=== PATIENT | male | born 1950 | race Caucasian/White ===

== ENCOUNTER → 2022-01-25 13:43 | Outpatient (CLI) | payer MEDICARE, OTHER, SELFPAY ==
--- NOTE | 2022-01-25 | DI.MRI.S_ITS ---
PROCEDURE: MR HEAD/BRAIN WO/W CON INDICATIONS: tremor unspecified TECHNIQUE: Noncontrast axial T1 spin echo, axial T2 fast spin echo, sagittal and axial FLAIR, coronal T2 fast spin echo, axial gradient echo, axial diffusion and ADC through the brain. After the administration of contrast, axial and coronal and sagittal T1 spin echo with fat saturation through the brain. COMPARISON: None. FINDINGS: Image quality: Excellent. CSF spaces: Basal cisterns are patent. No extra-axial fluid collections. Ventricles are normal in size and shape. Brain: No midline shift. No intracranial bleeds or masses. No abnormal intracranial enhancement. There is mild cerebral volume loss for age. There is mild periventricular white matter chronic small vessel ischemic change. The brainstem appears normal. Diffusion-weighted images demonstrate no acute ischemic insults. No chronic ischemic insults. Normal intravascular flow voids are present. Dural sinuses demonstrate normal postcontrast enhancement. Skull and face: Calvarial marrow is normal in signal. Orbits appear normal. Sinuses: Sinuses and mastoids appear clear. IMPRESSION: 1. No acute intracranial disease process. 2. No areas of acute or chronic infarction. 3. No abnormal intracranial mass or suspicious postcontrast enhancement. 4. Mild, diffuse cerebral volume loss. 5. Mild periventricular and subcortical white matter chronic microvascular ischemic change. Dictated by: Thais Jarrell MD, PhD on 01/25/2022 at 15:18 Approved by: Thais Jarrell MD, PhD on 01/25/2022 at 15:21
== END ==
PROVIDERS: Referring Provider Psychiatry & Neurology Neurology; Visit Provider Psychiatry & Neurology Neurology
DX: R25.1 Tremor, unspecified (principal)
CPT/HCPCS: 70553; A9579

== ENCOUNTER 2022-09-23 15:54 | Inpatient (IN) | payer MEDICARE, OTHER, SELFPAY ==
[2022-09-23] VITALS (27 sets, daily range): BP systolic 121–191; BP diastolic 56–110; PULSE 72–90; RESP 15–27; TEMP 36.4; O2SAT 94–100; BMI 29.5
[2022-09-23] MEDS: LIDOCAINE 2% (GLYDO) 6 ML GEL TOP (16:20)
--- NOTE | 2022-09-23 16:39 | PC.NURSE ---
Addendum entered by Milena Rogers R.N. 09/23/22 16:42: Pt also reporting a cold for past week and a half with some diarrhea this morning. Original Note: Pt reports recent TURP procedure on Aug.29 with no complications. Presents today with moderate penile bloody discharge, acute urinary retention and discomfort to abdomen in regard to wanting to void. Walter cath placed and 800cc of dark red bloody urine drained. Walter still draining. Pt reports on and off bloody discharge and urination since procedure. Urologist is Dr. Bauman at [facility] with a follow up appointment on October 02. Pt is on thinners. Encouraged to use call light for needs.
--- NOTE | 2022-09-23 16:44 | PC.NURSE ---
Pt denies chest pain and SOB. Pt placed on continuous cardiac nurse specialist.
--- NOTE | 2022-09-23 17:00 | ED.MALEGU ---
HPI - Male Genitourinary <Heather Neville DO - Last Filed: 09/28/22 07:35> General Chief complaint: Urogenital-Male Stated complaint: Urinary Retention Time Seen by Provider: 09/23/22 17:00 Source: patient Mode of arrival: Ambulatory History of Present Illness HPI Narrative: Patient is 72-year-old male history of coronary artery disease on aspirin Plavix with TURP on August 28 at [facility] presents today with difficulty with urination. Reports that he has had hematuria off and on since the surgery. Today he stopped urinating around new. Walter catheter has since placed by nursing staff gross hematuria. Patient says that there is blood foot frequently clears up. He denies any fever or chills. He had instant relief with Walter catheter. No chest pain dizziness or other symptoms. Related Data Home Medications Medication Instructions Recorded Confirmed carvedilol 25 mg tablet 25 mg BID 09/23/22 09/23/22 B Complex-Vitamin B12 2,500 mg PO DAILY 09/24/22 09/24/22 aspirin 81 mg tablet 81 mg PO DAILY 09/24/22 09/24/22 atorvastatin 40 mg tablet 40 mg PO BEDTIME 09/24/22 09/24/22 cholecalciferol (vitamin D3) 25 1,000 unit PO DAILY 09/24/22 09/24/22 mcg (1,000 unit) tablet citalopram 20 mg tablet 20 mg PO DAILY 09/24/22 09/24/22 hydrochlorothiazide 25 mg tablet 25 mg PO DAILY 09/24/22 09/24/22 metformin 1,000 mg tablet 1,000 mg PO BID 09/24/22 09/24/22 montelukast 10 mg tablet 10 mg PO BEDTIME 09/24/22 09/24/22 pantoprazole 40 mg tablet,delayed 40 mg PO BEDTIME 09/24/22 09/24/22 release primidone 50 mg tablet 50 mg PO BEDTIME 09/24/22 09/24/22 tamsulosin 0.4 mg capsule 0.4 mg PO BEDTIME 09/24/22 09/24/22 trazodone 100 mg tablet 100 mg PO BEDTIME 09/24/22 09/24/22 Allergies Allergy/AdvReac Type Severity Reaction Status Date / Time No Known Drug Allergies Allergy Verified 09/24/22 02:12 Review of Systems <Heather Neville DO - Last Filed: 09/28/22 07:35> Review of Systems ROS Unobtainable: All systems reviewed & are unremarkable except as noted in HPI and below Patient History <Heather Neville DO - Last Filed: 09/28/22 07:35> Medical History Asthma Cholelithiasis Diabetes type 2, controlled Essential hypertension Myocardial infarction Surgical History S/P CABG x 5 Family History Mother Hyperlipidemia Father Myocardial infarction Heart disease Brother Heart disease Social History household members: spouse Smoking Status: Never smoker Smoking Status: Never smoker alcohol intake frequency: 0-2 drinks per day Substance Use Type: does not use Exam <Heather Neville DO - Last Filed: 09/28/22 07:35> Initial Vital Signs Initial Vital Signs: Vital Signs Temperature 97.5 F L 09/23/22 16:00 Pulse Rate 90 09/23/22 16:00 Respiratory Rate 20 09/23/22 16:00 Blood Pressure 187/91 H 09/23/22 16:00 Pulse Oximetry 100 09/23/22 16:00 Oxygen Delivery Method Room Air 09/23/22 16:00 GENERAL: Alert pleasant 72-year-old male CARDIOVASCULAR: peripheral pulses in tact, cap refill <2 sec RESPIRATORY: No respiratory distress, speaks in full sentences without difficulty ABDOMEN: Soft, nontender, no guarding or rebound : Walter catheter in place gross hematuria EXTREMITIES: Normal range of motion, no clubbing or edema. Neurovascularly intact NEUROLOGICAL: Cranial nerves II through XII grossly intact. Normal gait and speech. SKIN: Warm, dry, no petechiae, no rashes or lesions. <Marcin Hoover DO - Last Filed: 09/24/22 00:25> Initial Vital Signs Initial Vital Signs: Vital Signs Temperature 97.5 F L 09/23/22 16:00 Pulse Rate 90 09/23/22 16:00 Respiratory Rate 20 09/23/22 16:00 Blood Pressure 187/91 H 09/23/22 16:00 Pulse Oximetry 100 09/23/22 16:00 Oxygen Delivery Method Room Air 09/23/22 16:00 Course <Heather Neville DO - Last Filed: 09/28/22 07:35> Orders Ordered: Discontinued Medications Acetaminophen (Acetaminophen 325 Mg Tablet) 650 mg PO Q6H PRN PRN Reason: Fever/Mild Pain (1-3) Last Admin: 09/25/22 08:37 Dose: 650 mg Documented By: BV Atorvastatin Calcium (Atorvastatin 20 Mg Tablet) 40 mg PO BEDTIME [facility] Last Admin: 09/25/22 21:11 Dose: 40 mg Documented By: Admin: 09/24/22 21:05 Dose: 40 mg Documented By: Admin: 09/24/22 02:31 Dose: Not Given Documented By: CT Carvedilol (Carvedilol 12.5 Mg Tablet) 25 mg PO BID [facility] Last Admin: 09/26/22 08:26 Dose: 25 mg Documented By: Admin: 09/25/22 21:10 Dose: 25 mg Documented By: Admin: 09/25/22 08:38 Dose: 25 mg Documented By: Admin: 09/24/22 21:04 Dose: 25 mg Documented By: Admin: 09/24/22 09:04 Dose: 25 mg Documented By: CLP Dextrose (Dextrose 50 % In Water 25 Gm/50 Ml Syringe) 25 gm IV PRN PRN PRN Reason: Hypoglycemia Sodium Chloride (Normal Saline 0.9%) 1,000 mls @ 100 mls/hr IV CONT CIERRA Last Admin: 09/24/22 05:13 Dose: Not Given Documented By: MS(2) POTASSIUM ALUM 30 gm/ Sterile (Water) 3,000 mls @ 250 mls/hr IRR CONT [facility] Stop: 02/22/23 02:29 Last Infusion: 09/26/22 11:16 Dose: 0 mls/hr Documented By: Admin: 09/25/22 23:15 Dose: 250 mls/hr Documented By: Infusion: 09/25/22 23:15 Dose: 250 mls/hr Documented By: Admin: 09/25/22 15:34 Dose: 250 mls/hr Documented By: Infusion: 09/25/22 05:30 Dose: 250 mls/hr Documented By: Admin: 09/24/22 17:30 Dose: 250 mls/hr Documented By: CLP Insulin Glargine (Insulin Glargine 100 Unit/Ml 3ml Pen) 5 unit SUBCUT 0800 [facility] Last Admin: 09/26/22 08:24 Dose: 5 unit Documented By: MS Co-signed By: EM Admin: 09/25/22 08:39 Dose: 5 unit Documented By: BV Co-signed By: DOMINIQUE Admin: 09/24/22 09:02 Dose: 5 unit Documented By: CLP Co-signed By: JESSICA Insulin Glargine (Insulin Glargine 100 Unit/Ml 3ml Pen) 5 unit SUBCUT 2100 [facility] Last Admin: 09/25/22 23:13 Dose: Not Given Documented By: Admin: 09/24/22 21:09 Dose: 5 unit Documented By: CT Co-signed By: (2) Insulin Human Lispro (Insulin Lispro 100 Unit/Ml 3ml Vial) 0 unit SUBCUT ACHS [facility]; Protocol Last Admin: 09/26/22 12:14 Dose: Not Given Documented By: Admin: 09/26/22 08:27 Dose: 1 unit Documented By: MS Co-signed By: EM Admin: 09/25/22 21:23 Dose: 2 unit Documented By: CS Co-signed By: ULICES Admin: 09/25/22 17:57 Dose: Not Given Documented By: Admin: 09/25/22 13:46 Dose: 3 unit Documented By: BV Co-signed By: CLL Admin: 09/25/22 08:43 Dose: 1 unit Documented By: BV Co-signed By: CLL Admin: 09/24/22 21:30 Dose: Not Given Documented By: Admin: 09/24/22 17:31 Dose: Not Given Documented By: Admin: 09/24/22 14:05 Dose: Not Given Documented By: Admin: 09/24/22 09:02 Dose: 1 unit Documented By: CLP Co-signed By: LDV Lidocaine HCl (Lidocaine 2% (Glydo) 6 Ml Gel) 6 ml TOP NOW ONE Stop: 09/23/22 16:07 Last Admin: 09/23/22 16:20 Dose: 6 ml Documented By: SB Lidocaine HCl (Lidocaine 2% (Glydo) 6 Ml Gel) 6 ml TOP NOW ONE Stop: 09/24/22 12:52 Last Admin: 09/24/22 13:00 Dose: 6 ml Documented By: CLP Losartan Potassium (Losartan 50 Mg Tablet) 100 mg PO DAILY [facility] Last Admin: 09/26/22 08:27 Dose: 100 mg Documented By: Admin: 09/25/22 08:38 Dose: 100 mg Documented By: Admin: 09/24/22 09:04 Dose: 100 mg Documented By: CLP Montelukast Sodium (Montelukast 10 Mg Tablet) 10 mg PO BEDTIME [facility] Last Admin: 09/25/22 21:11 Dose: 10 mg Documented By: Admin: 09/24/22 21:05 Dose: 10 mg Documented By: CT Naloxone HCl (Naloxone 0.4 Mg/Ml Vial) 0.2 mg IV Q2MIN PRN PRN Reason: Opiate Reversal Ondansetron HCl (Ondansetron 4 Mg/2 Ml Inj) 4 mg IV Q6HR PRN PRN Reason: Nausea And Vomiting Pantoprazole Sodium (Pantoprazole Dr 40 Mg Tablet) 40 mg PO 0700 [facility] Last Admin: 09/26/22 08:31 Dose: Not Given Documented By: Admin: 09/25/22 06:56 Dose: 40 mg Documented By: MS(2) Admin: 09/24/22 06:13 Dose: 40 mg Documented By: CT Phenazopyridine HCl (Phenazopyridine 100 Mg Tablet) 200 mg PO TID [facility] Last Admin: 09/26/22 08:23 Dose: 200 mg Documented By: Admin: 09/25/22 21:10 Dose: 200 mg Documented By: Admin: 09/25/22 17:55 Dose: 200 mg Documented By: RICHAR Tamsulosin HCl (Tamsulosin 0.4 Mg Capsule) 0.4 mg PO BEDTIME [facility] Last Admin: 09/25/22 18:45 Dose: 0.4 mg Documented By: Admin: 09/24/22 21:05 Dose: 0.4 mg Documented By: CT Trazodone HCl (Trazodone 100 Mg Tablet) 100 mg PO BEDTIME PRN PRN Reason: Insomnia Last Admin: 09/25/22 18:52 Dose: 100 mg Documented By: Admin: 09/24/22 23:40 Dose: 100 mg Documented By: CT Vital Signs Vital signs: Vital Signs - 8 hr 09/23/22 16:30 09/23/22 16:37 09/23/22 16:37 Pulse Rate 72 74 Respiratory Rate Blood Pressure 121/56 L Pulse Oximetry 99 99 09/23/22 17:00 09/23/22 17:00 09/23/22 17:30 Pulse Rate 76 Respiratory Rate 15 Blood Pressure 138/65 159/72 H Pulse Oximetry 94 09/23/22 17:30 09/23/22 18:00 09/23/22 18:30 Pulse Rate 76 76 76 Respiratory Rate 21 27 H Blood Pressure Pulse Oximetry 97 97 95 09/23/22 19:00 09/23/22 19:30 09/23/22 19:31 Pulse Rate 75 83 76 Respiratory Rate Blood Pressure Pulse Oximetry 95 96 96 09/23/22 19:31 09/23/22 20:00 09/23/22 20:01 Pulse Rate 79 Respiratory Rate 25 H Blood Pressure 129/69 191/110 H Pulse Oximetry 95 09/23/22 20:01 09/23/22 20:04 09/23/22 20:04 Pulse Rate 79 77 Respiratory Rate 23 20 Blood Pressure 159/69 H Pulse Oximetry 96 96 09/23/22 20:30 09/23/22 20:31 09/23/22 20:31 Pulse Rate 84 84 Respiratory Rate 20 24 Blood Pressure 127/89 Pulse Oximetry 95 95 09/23/22 21:00 09/23/22 21:01 09/23/22 21:05 Pulse Rate 82 82 Respiratory Rate 21 22 Blood Pressure 151/99 H Pulse Oximetry 97 96 09/23/22 21:05 09/23/22 21:30 09/23/22 21:30 Pulse Rate 81 83 Respiratory Rate 18 24 Blood Pressure 150/102 H Pulse Oximetry 95 96 09/23/22 21:56 09/23/22 21:56 Pulse Rate 78 Respiratory Rate 22 Blood Pressure 139/62 Pulse Oximetry 95 <Marcin Hoover DO - Last Filed: 09/24/22 00:25> Orders Ordered: Discontinued Medications Acetaminophen (Acetaminophen 325 Mg Tablet) 650 mg PO Q6H PRN PRN Reason: Fever/Mild Pain (1-3) Last Admin: 09/25/22 08:37 Dose: 650 mg Documented By: BV Atorvastatin Calcium (Atorvastatin 20 Mg Tablet) 40 mg PO BEDTIME [facility] Last Admin: 09/25/22 21:11 Dose: 40 mg Documented By: Admin: 09/24/22 21:05 Dose: 40 mg Documented By: Admin: 09/24/22 02:31 Dose: Not Given Documented By: CT Carvedilol (Carvedilol 12.5 Mg Tablet) 25 mg PO BID [facility] Last Admin: 09/26/22 08:26 Dose: 25 mg Documented By: Admin: 09/25/22 21:10 Dose: 25 mg Documented By: Admin: 09/25/22 08:38 Dose: 25 mg Documented By: Admin: 09/24/22 21:04 Dose: 25 mg Documented By: Admin: 09/24/22 09:04 Dose: 25 mg Documented By: CLP Dextrose (Dextrose 50 % In Water 25 Gm/50 Ml Syringe) 25 gm IV PRN PRN PRN Reason: Hypoglycemia Sodium Chloride (Normal Saline 0.9%) 1,000 mls @ 100 mls/hr IV CONT [facility] Last Admin: 09/24/22 05:13 Dose: Not Given Documented By: MS(2) POTASSIUM ALUM 30 gm/ Sterile (Water) 3,000 mls @ 250 mls/hr IRR CONT [facility] Stop: 02/22/23 02:29 Last Infusion: 09/26/22 11:16 Dose: 0 mls/hr Documented By: Admin: 09/25/22 23:15 Dose: 250 mls/hr Documented By: Infusion: 09/25/22 23:15 Dose: 250 mls/hr Documented By: Admin: 09/25/22 15:34 Dose: 250 mls/hr Documented By: Infusion: 09/25/22 05:30 Dose: 250 mls/hr Documented By: Admin: 09/24/22 17:30 Dose: 250 mls/hr Documented By: HEIDI Insulin Glargine (Insulin Glargine 100 Unit/Ml 3ml Pen) 5 unit SUBCUT 0800 [facility] Last Admin: 09/26/22 08:24 Dose: 5 unit Documented By: MS Co-signed By: EM Admin: 09/25/22 08:39 Dose: 5 unit Documented By: BV Co-signed By: CLL Admin: 09/24/22 09:02 Dose: 5 unit Documented By: HEIDI Co-signed By: LDV Insulin Glargine (Insulin Glargine 100 Unit/Ml 3ml Pen) 5 unit SUBCUT 2100 [facility] Last Admin: 09/25/22 23:13 Dose: Not Given Documented By: Admin: 09/24/22 21:09 Dose: 5 unit Documented By: CT Co-signed By: MS(2) Insulin Human Lispro (Insulin Lispro 100 Unit/Ml 3ml Vial) 0 unit SUBCUT ACHS [facility]; Protocol Last Admin: 09/26/22 12:14 Dose: Not Given Documented By: Admin: 09/26/22 08:27 Dose: 1 unit Documented By: MS Co-signed By: EM Admin: 09/25/22 21:23 Dose: 2 unit Documented By: CS Co-signed By: AKP Admin: 09/25/22 17:57 Dose: Not Given Documented By: Admin: 09/25/22 13:46 Dose: 3 unit Documented By: BV Co-signed By: DOMINIQUE Admin: 09/25/22 08:43 Dose: 1 unit Documented By: BV Co-signed By: CLL Admin: 09/24/22 21:30 Dose: Not Given Documented By: Admin: 09/24/22 17:31 Dose: Not Given Documented By: Admin: 09/24/22 14:05 Dose: Not Given Documented By: Admin: 09/24/22 09:02 Dose: 1 unit Documented By: CLP Co-signed By: LDV Lidocaine HCl (Lidocaine 2% (Glydo) 6 Ml Gel) 6 ml TOP NOW ONE Stop: 09/23/22 16:07 Last Admin: 09/23/22 16:20 Dose: 6 ml Documented By: SB Lidocaine HCl (Lidocaine 2% (Glydo) 6 Ml Gel) 6 ml TOP NOW ONE Stop: 09/24/22 12:52 Last Admin: 09/24/22 13:00 Dose: 6 ml Documented By: CLP Losartan Potassium (Losartan 50 Mg Tablet) 100 mg PO DAILY [facility] Last Admin: 09/26/22 08:27 Dose: 100 mg Documented By: Admin: 09/25/22 08:38 Dose: 100 mg Documented By: Admin: 09/24/22 09:04 Dose: 100 mg Documented By: CLP Montelukast Sodium (Montelukast 10 Mg Tablet) 10 mg PO BEDTIME [facility] Last Admin: 09/25/22 21:11 Dose: 10 mg Documented By: Admin: 09/24/22 21:05 Dose: 10 mg Documented By: CT Naloxone HCl (Naloxone 0.4 Mg/Ml Vial) 0.2 mg IV Q2MIN PRN PRN Reason: Opiate Reversal Ondansetron HCl (Ondansetron 4 Mg/2 Ml Inj) 4 mg IV Q6HR PRN PRN Reason: Nausea And Vomiting Pantoprazole Sodium (Pantoprazole Dr 40 Mg Tablet) 40 mg PO 0700 [facility] Last Admin: 09/26/22 08:31 Dose: Not Given Documented By: Admin: 09/25/22 06:56 Dose: 40 mg Documented By: MS(2) Admin: 09/24/22 06:13 Dose: 40 mg Documented By: CT Phenazopyridine HCl (Phenazopyridine 100 Mg Tablet) 200 mg PO TID [facility] Last Admin: 09/26/22 08:23 Dose: 200 mg Documented By: Admin: 09/25/22 21:10 Dose: 200 mg Documented By: Admin: 09/25/22 17:55 Dose: 200 mg Documented By: RICHAR Tamsulosin HCl (Tamsulosin 0.4 Mg Capsule) 0.4 mg PO BEDTIME [facility] Last Admin: 09/25/22 18:45 Dose: 0.4 mg Documented By: Admin: 09/24/22 21:05 Dose: 0.4 mg Documented By: CT Trazodone HCl (Trazodone 100 Mg Tablet) 100 mg PO BEDTIME PRN PRN Reason: Insomnia Last Admin: 09/25/22 18:52 Dose: 100 mg Documented By: Admin: 09/24/22 23:40 Dose: 100 mg Documented By: CT Vital Signs Vital signs: Vital Signs - 8 hr 09/23/22 16:30 09/23/22 16:37 09/23/22 16:37 Pulse Rate 72 74 Respiratory Rate Blood Pressure 121/56 L Pulse Oximetry 99 99 09/23/22 17:00 09/23/22 17:00 09/23/22 17:30 Pulse Rate 76 Respiratory Rate 15 Blood Pressure 138/65 159/72 H Pulse Oximetry 94 09/23/22 17:30 09/23/22 18:00 09/23/22 18:30 Pulse Rate 76 76 76 Respiratory Rate 21 27 H Blood Pressure Pulse Oximetry 97 97 95 09/23/22 19:00 09/23/22 19:30 09/23/22 19:31 Pulse Rate 75 83 76 Respiratory Rate Blood Pressure Pulse Oximetry 95 96 96 09/23/22 19:31 09/23/22 20:00 09/23/22 20:01 Pulse Rate 79 Respiratory Rate 25 H Blood Pressure 129/69 191/110 H Pulse Oximetry 95 09/23/22 20:01 09/23/22 20:04 09/23/22 20:04 Pulse Rate 79 77 Respiratory Rate 23 20 Blood Pressure 159/69 H Pulse Oximetry 96 96 09/23/22 20:30 09/23/22 20:31 09/23/22 20:31 Pulse Rate 84 84 Respiratory Rate 20 24 Blood Pressure 127/89 Pulse Oximetry 95 95 09/23/22 21:00 09/23/22 21:01 09/23/22 21:05 Pulse Rate 82 82 Respiratory Rate 21 22 Blood Pressure 151/99 H Pulse Oximetry 97 96 09/23/22 21:05 09/23/22 21:30 09/23/22 21:30 Pulse Rate 81 83 Respiratory Rate 18 24 Blood Pressure 150/102 H Pulse Oximetry 95 96 09/23/22 21:56 09/23/22 21:56 Pulse Rate 78 Respiratory Rate 22 Blood Pressure 139/62 Pulse Oximetry 95 MDM - Male Genitourinary <Heather Neville, DO - Last Filed: 09/28/22 07:35> Lab Data 09/26/22 06:25 09/26/22 06:25 Labs: Lab Results 09/23/22 09/23/22 09/23/22 Range/Units 18:02 18:35 18:35 WBC 16.0 H (4.5-11.0) X10^3/uL RBC 4.69 (4.5-5.9) X10^6/uL Hgb 14.6 (13.5-17.5) g/dL Hct 42.8 (41-53) % MCV 91.2 (80-100) fL MCH 31.1 (26-34) PG MCHC 34.1 (30-36) % RDW 14.2 (11.6-14.8) % Plt Count 266 (150-400) X10^3/uL Neut % (Auto) 87.6 H (50-75) % Lymph % (Auto) 6.3 L (25-40) % Marshall % (Auto) 4.7 (3-14) % Eos % (Auto) 0.9 L (2-4) % Baso % (Auto) 0.5 (0-2) % Neut # (Auto) 52142 H (3468-0520) /uL Lymph # (Auto) 1000 L (0075-0567) /uL Marshall # (Auto) 800 (0-900) /uL Eos # (Auto) 100 (0-450) /uL Baso # (Auto) 100 (0-100) /uL Sodium 134 L (137-145) mmol/L Potassium 4.1 (3.4-5.1) mmol/L Chloride 98 (98-107) mmol/L Carbon Dioxide 25 (22-32) mmol/L BUN 26 H (9-20) mg/dL Creatinine 0.94 (0.66-1.25) mg/dL Estimated GFR > 60 (>60) mL/min BUN/Creatinine Ratio 27.7 H (6-22) Glucose 152 H (80-110) mg/dL Hemoglobin A1c (4.0-6.0) % Calcium 8.9 (8.4-10.2) mg/dL Total Bilirubin 0.5 (0.2-1.3) mg/dL AST 31 (17-59) IU/L ALT 32 (<50) IU/L Alkaline Phosphatase 86 (38-126) U/L Total Protein 7.6 (6.3-8.2) g/dL Albumin 4.2 (3.5-5.0) g/dL Globulin 3.4 (1.7-4.1) g/dL Albumin/Globulin Ratio 1.2 (1.0-2.8) SARS-CoV-2 (PCR) Negative (Negative) Influenza A (RT-PCR) Flu a negative (NEGATIVE) Influenza B (RT-PCR) Flu b negative (NEGATIVE) RSV (PCR) Negative (Negative) 09/23/22 Range/Units 18:35 WBC (4.5-11.0) X10^3/uL RBC (4.5-5.9) X10^6/uL Hgb (13.5-17.5) g/dL Hct (41-53) % MCV (80-100) fL MCH (26-34) PG MCHC (30-36) % RDW (11.6-14.8) % Plt Count (150-400) X10^3/uL Neut % (Auto) (50-75) % Lymph % (Auto) (25-40) % Marshall % (Auto) (3-14) % Eos % (Auto) (2-4) % Baso % (Auto) (0-2) % Neut # (Auto) (7413-0250) /uL Lymph # (Auto) (5030-5764) /uL Marshall # (Auto) (0-900) /uL Eos # (Auto) (0-450) /uL Baso # (Auto) (0-100) /uL Sodium (137-145) mmol/L Potassium (3.4-5.1) mmol/L Chloride (98-107) mmol/L Carbon Dioxide (22-32) mmol/L BUN (9-20) mg/dL Creatinine (0.66-1.25) mg/dL Estimated GFR (>60) mL/min BUN/Creatinine Ratio (6-22) Glucose (80-110) mg/dL Hemoglobin A1c 7.0 H (4.0-6.0) % Calcium (8.4-10.2) mg/dL Total Bilirubin (0.2-1.3) mg/dL AST (17-59) IU/L ALT (<50) IU/L Alkaline Phosphatase (38-126) U/L Total Protein (6.3-8.2) g/dL Albumin (3.5-5.0) g/dL Globulin (1.7-4.1) g/dL Albumin/Globulin Ratio (1.0-2.8) SARS-CoV-2 (PCR) (Negative) Influenza A (RT-PCR) (NEGATIVE) Influenza B (RT-PCR) (NEGATIVE) RSV (PCR) (Negative) [facility] [place] Narrative Medical decision making narrative: Patient 72-year-old male history of coronary artery disease TURP August 28 presenting today with urinary retention and gross hematuria. Initially Walter catheter was irrigated with sterile water clots were removed got 3 L of continuous normal saline it did clear but continued to have some clots time. It was clamped and started having gross blood again. Patient is hemodynamically stable he is not tachycardic or hypotensive. He is not requiring anything for pain. 2035 on-call urology Loc[facility] updated patient's symptoms test results he reviewed patient's record. He reports stopping any antiplatelet medication and continuous normal saline irrigation. Recommended patient can stay over [facility] for admission 2039 Dr. Garsia on-call urology updated patient's symptoms test results request if possible that patient be transferred back to [facility] where patient had surgery and were patient's surgeon is, if that is not possible he is happy to consult and fever patient Patient signed out to Dr. Hoover awaiting to hear back from [facility] and possible transfer <Marcin Hoover, DO - Last Filed: 09/24/22 00:25> Lab Data Labs: Lab Results 09/23/22 09/23/22 09/23/22 Range/Units 18:02 18:35 18:35 WBC 16.0 H (4.5-11.0) X10^3/uL RBC 4.69 (4.5-5.9) X10^6/uL Hgb 14.6 (13.5-17.5) g/dL Hct 42.8 (41-53) % MCV 91.2 (80-100) fL MCH 31.1 (26-34) PG MCHC 34.1 (30-36) % RDW 14.2 (11.6-14.8) % Plt Count 266 (150-400) X10^3/uL Neut % (Auto) 87.6 H (50-75) % Lymph % (Auto) 6.3 L (25-40) % Marshall % (Auto) 4.7 (3-14) % Eos % (Auto) 0.9 L (2-4) % Baso % (Auto) 0.5 (0-2) % Neut # (Auto) 96321 H (8414-4096) /uL Lymph # (Auto) 1000 L (4959-3844) /uL Marshall # (Auto) 800 (0-900) /uL Eos # (Auto) 100 (0-450) /uL Baso # (Auto) 100 (0-100) /uL Sodium 134 L (137-145) mmol/L Potassium 4.1 (3.4-5.1) mmol/L Chloride 98 (98-107) mmol/L Carbon Dioxide 25 (22-32) mmol/L BUN 26 H (9-20) mg/dL Creatinine 0.94 (0.66-1.25) mg/dL Estimated GFR > 60 (>60) mL/min BUN/Creatinine Ratio 27.7 H (6-22) Glucose 152 H (80-110) mg/dL Hemoglobin A1c (4.0-6.0) % Calcium 8.9 (8.4-10.2) mg/dL Total Bilirubin 0.5 (0.2-1.3) mg/dL AST 31 (17-59) IU/L ALT 32 (<50) IU/L Alkaline Phosphatase 86 (38-126) U/L Total Protein 7.6 (6.3-8.2) g/dL Albumin 4.2 (3.5-5.0) g/dL Globulin 3.4 (1.7-4.1) g/dL Albumin/Globulin Ratio 1.2 (1.0-2.8) SARS-CoV-2 (PCR) Negative (Negative) Influenza A (RT-PCR) Flu a negative (NEGATIVE) Influenza B (RT-PCR) Flu b negative (NEGATIVE) RSV (PCR) Negative (Negative) 09/23/22 Range/Units 18:35 WBC (4.5-11.0) X10^3/uL RBC (4.5-5.9) X10^6/uL Hgb (13.5-17.5) g/dL Hct (41-53) % MCV (80-100) fL MCH (26-34) PG MCHC (30-36) % RDW (11.6-14.8) % Plt Count (150-400) X10^3/uL Neut % (Auto) (50-75) % Lymph % (Auto) (25-40) % Marshall % (Auto) (3-14) % Eos % (Auto) (2-4) % Baso % (Auto) (0-2) % Neut # (Auto) (6655-0029) /uL Lymph # (Auto) (2540-0592) /uL Marshall # (Auto) (0-900) /uL Eos # (Auto) (0-450) /uL Baso # (Auto) (0-100) /uL Sodium (137-145) mmol/L Potassium (3.4-5.1) mmol/L Chloride (98-107) mmol/L Carbon Dioxide (22-32) mmol/L BUN (9-20) mg/dL Creatinine (0.66-1.25) mg/dL Estimated GFR (>60) mL/min BUN/Creatinine Ratio (6-22) Glucose (80-110) mg/dL Hemoglobin A1c 7.0 H (4.0-6.0) % Calcium (8.4-10.2) mg/dL Total Bilirubin (0.2-1.3) mg/dL AST (17-59) IU/L ALT (<50) IU/L Alkaline Phosphatase (38-126) U/L Total Protein (6.3-8.2) g/dL Albumin (3.5-5.0) g/dL Globulin (1.7-4.1) g/dL Albumin/Globulin Ratio (1.0-2.8) SARS-CoV-2 (PCR) (Negative) Influenza A (RT-PCR) (NEGATIVE) Influenza B (RT-PCR) (NEGATIVE) RSV (PCR) (Negative) Imaging Data CT pelvis: Radiologist's Impression: PROCEDURE:? CT PEL WO CON ? INDICATIONS:? Hematuria, CT recommended by Urology ? TECHNIQUE:? 5 mm thick sections acquired from the iliac crests to the symphysis.? 5 mm coronal and sagittal reformats were then performed.? For radiation dose reduction, the following was used:? automated exposure control, adjustment of mA and/or kV according to patient size.? ? ? COMPARISON:? Outside Film, CT, CT ABDOMEN PELVIS WITHOUT CONTRAST, 10/15/2020, 10:28. ? FINDINGS:? Image quality:? Excellent.? ? Peritoneum and bowel:? Bowel loops demonstrate normal wall thickness and caliber.? No intraperitoneal free fluid or air.? ? Genitourinary:? A Walter catheter is present within the urinary bladder.? There is moderate distention of the urinary bladder with intraluminal high density consistent with blood clot.? Intraluminal gas is also present within the bladder likely related to catheter placement.? There is adjacent mild fat stranding along the bladder.? There is a defect within the prostate anteriorly consistent with history of recent transurethral prostatic resection. ? Nodes and vessels:? No iliac, pelvic, or inguinal adenopathy by size criteria.? Iliac vessels demonstrate normal size.? ? Bones:? No suspicious bony lesions.? Pelvic ring and hip joints appear intact.? ? Miscellaneous:? No inguinal hernias.? ? IMPRESSION:? ? 1. Extensive blood product with dense clot in the urinary bladder which demonstrates associated moderate distention. ? 2. No free fluid to suggest bladder rupture. MDM Narrative Medical decision making narrative: Patient 72-year-old male history of coronary artery disease TURP August 28 presenting today with urinary retention and gross hematuria. Initially Walter catheter was irrigated with sterile water clots were removed got 3 L of continuous normal saline it did clear but continued to have some clots time. It was clamped and started having gross blood again. Patient is hemodynamically stable he is not tachycardic or hypotensive. He is not requiring anything for pain. 2035 on-call urology [facility] updated patient's symptoms test results he reviewed patient's record. He reports stopping any antiplatelet medication and continuous normal saline irrigation. Recommended patient can stay over [facility] for admission 2039 Dr. Garsia on-call urology updated patient's symptoms test results request if possible that patient be transferred back to [facility] where patient had surgery and were patient's surgeon is, if that is not possible he is happy to consult and fever patient Patient signed out to Dr. Hoover awaiting to hear back from [facility] and possible transfer Dr hoover: Received turned over. Reviewed patient's history and physical and workup up to this point. Is still receiving continuous bladder irrigation and still having dark urine flow. I did discuss the case with hospitalist at [facility] which was where the patient had his procedure approximately 1 month ago. Hospitalist that facility stated that the patient did not need a transfer that we could admit the patient here at this facility and then the patient required surgical intervention in the future they could be transferred. I discussed the case with Dr. Garsia urologist on-call at this facility. He would recommended that the patient be transferred back to the facility where the patient had the procedure performed however I informed them that the hospitalist would not accept the patient for transfer in the current condition. He asked that the patient have a CT scan of his pelvis performed to evaluate for clot burden in that the patient be admitted to the hospitalist service and he would consult after admission. The CT scan was performed and did show quite a bit of clot burden. I then discussed the case with [employer] [facility] the night hospitalist who will admit for further evaluation and treatment. I did discuss the need for admission at this facility with the patient and family at bedside. They both expressed understanding and agreement. Discharge Plan Departure Patient Disposition: Admitted As Inpatient Clinical Impression: Acute retention of urine, Hematuria Admit Date/Time: 09/24/22 00:16 Admit Provider: Bhavna White
--- NOTE | 2022-09-23 17:52 | PC.NURSE ---
This RN hand irrigated patient's landers cath with approximately 2500 ml of sterile water per provider direction. Multiple long, dark read clots were removed. Urine began to have no clots and was becoming light pink when patient began to report some pain and pressure in his bladder so irrigation stopped. Provider aware. Landers is patent and draining light pink. Encouraged to use call light. Call light within reach.
[2022-09-23 18:43] LABS: Influenza A - CEPHEID Flu A NEGATIVE (NEGATIVE); Influenza B - CEPHEID Flu B NEGATIVE (NEGATIVE); Respiratory Syncytial Virus Negative (Negative)
[2022-09-23 18:46] LABS: Add Manual Diff / Slide Review NO; Basophils Absolute Auto 100 /uL (0-100); Basophils Percent Auto 0.5 % (0-2); Eosinophils Absolute Auto 100 /uL (0-450); Eosinophils Percent Auto 0.9 % (2-4); Hematocrit 42.8 % (41-53); Hemoglobin 14.6 g/dL (13.5-17.5); Lymphocytes Absolute Auto 1000 /uL (1100-4500); Lymphocytes Percent Auto 6.3 % (25-40); Mean Corpuscular HGB Conc 34.1 % (30-36); Mean Corpuscular Hemoglobin 31.1 PG (26-34); Mean Corpuscular Volume 91.2 fL (80-100); Monocytes Absolute Auto 800 /uL (0-900); Monocytes Percent Auto 4.7 % (3-14); Neutrophils Absolute Auto 14000 /uL (1500-7000); Neutrophils Percent Auto 87.6 % (50-75); Platelet Count 266 X10^3/uL (150-400); Red Blood Cell Count 4.69 X10^6/uL (4.5-5.9); Red Cell Distribution Width 14.2 % (11.6-14.8)
[2022-09-23 18:48] LABS: COVID-19 CEPHEID 4-PLEX PCR Negative (Negative)
[2022-09-23 19:01] LABS: HEMOLYSIS < 15 (0-50); Potassium 4.1 mmol/L (3.4-5.1)
[2022-09-23 19:02] LABS: Alanine Aminotransferase 32 IU/L (<50); Albumin 4.2 g/dL (3.5-5.0); Albumin Globulin Ratio 1.2 (1.0-2.8); Alkaline Phosphatase 86 U/L (38-126); Aspartate Aminotransferase 31 IU/L (17-59); BUN Creatinine Ratio 27.7 (6-22); Bilirubin Total 0.5 mg/dL (0.2-1.3); Blood Urea Nitrogen 26 mg/dL (9-20); Calcium 8.9 mg/dL (8.4-10.2); Carbon Dioxide 25 mmol/L (22-32); Chloride 98 mmol/L (98-107); Estimated Glomerular Filt Rate > 60 mL/min (>60); Globulin 3.4 g/dL (1.7-4.1); Glucose 152 mg/dL (80-110); Sodium 134 mmol/L (137-145); Total Protein 7.6 g/dL (6.3-8.2)
--- NOTE | 2022-09-23 19:38 | PC.NURSE ---
1938: Continuous bladder irrigation started with sterile water per provider verbal order.
--- NOTE | 2022-09-23 22:01 | DI.CT.S_ITS ---
PROCEDURE: CT PEL WO CON INDICATIONS: Hematuria, CT recommended by Urology TECHNIQUE: 5 mm thick sections acquired from the iliac crests to the symphysis. 5 mm coronal and sagittal reformats were then performed. For radiation dose reduction, the following was used: automated exposure control, adjustment of mA and/or kV according to patient size. COMPARISON: Outside Film, CT, CT ABDOMEN PELVIS WITHOUT CONTRAST, 10/15/2020, 10:28. FINDINGS: Image quality: Excellent. Peritoneum and bowel: Bowel loops demonstrate normal wall thickness and caliber. No intraperitoneal free fluid or air. Genitourinary: A Walter catheter is present within the urinary bladder. There is moderate distention of the urinary bladder with intraluminal high density consistent with blood clot. Intraluminal gas is also present within the bladder likely related to catheter placement. There is adjacent mild fat stranding along the bladder. There is a defect within the prostate anteriorly consistent with history of recent transurethral prostatic resection. Nodes and vessels: No iliac, pelvic, or inguinal adenopathy by size criteria. Iliac vessels demonstrate normal size. Bones: No suspicious bony lesions. Pelvic ring and hip joints appear intact. Miscellaneous: No inguinal hernias. IMPRESSION: 1. Extensive blood product with dense clot in the urinary bladder which demonstrates associated moderate distention. 2. No free fluid to suggest bladder rupture. Dictated by: Elroy Crespo M.D. on 09/23/2022 at 22:53 Approved by: Elroy Crespo M.D. on 09/23/2022 at 22:57
[2022-09-24] VITALS (12 sets, daily range): BP systolic 113–168; BP diastolic 59–80; PULSE 72–79; RESP 17–23; TEMP 36.1–36.7; O2SAT 94–98; BMI 29.5
--- NOTE | 2022-09-24 00:13 | PC.NURSE ---
Pt reports use of CPAP at home. Inpatient RN aware and RT called.
--- NOTE | 2022-09-24 01:58 | P.HP_ITS ---
History of Present Illness History of Present Illness Date Patient Seen: 09/24/22 Time Patient Seen: 00:45 Chief complaint: Urinary Retention Narrative: Barrett Jerome is a 72-year-old male with a history of coronary artery disease on aspirin and Plavix, a quintuple bypass in 2006 and 3 MIs and diabetes type 2, underwent TURP on August 28 at [facility]. He presented today with acute urinary retention.? For a few days post surgery, he had intermittent fevers and reports that he has had hematuria off and on since the surgery, sometime with clots, mostly pink to red urine.? Today he stopped urinating around noon.? They were on their way to [facility], but he could not stand the pain, so they stopped at [place]. Denies h/a, chest pain, shortness of breath, nausea or vomiting, or bowel issues. He has had cold symptoms over the past week. States his diabetes is well controlled, last A1c prior to the TURP was 6.1. Walter catheter has since placed by nursing staff gross hematuria.? He had instant relief with Walter catheter. CT of the pelvis reported extensive blood product with dense clot in the urinary bladder and associated distention. Today he is afebrile, blood pressure 168/71 heart rate 73 respiratory rate 17 oxygen saturation of 96% on room air he weighs 90.7 kg with a BMI of 29.5. His white count is markedly elevated at 16.0, is a neutrophil count of 14,000 sodium 134 glucose 152 his A1c is 7 and COVID-19 PCR is negative. Patient History Medical History (Updated 09/24/22 @ 02:08 by JOSEPH Blackwell) Asthma Cholelithiasis Diabetes type 2, controlled Essential hypertension Myocardial infarction Surgical History (Updated 09/24/22 @ 02:08 by JOSEPH Blackwell) S/P CABG x 5 Family & Social History Family History (Updated 09/24/22 @ 02:10 by JOSEPH Blackwell) Mother Hyperlipidemia Father Myocardial infarction Heart disease Brother Heart disease Social History: household members spouse Prior Living Arrangements House Safety & Behavioral: Feels Safe in Current Yes Environment Been Physically Hurt or No Threatened By a Person Tobacco & Substance use: Smoking Status Never smoker alcohol intake frequency 0-2 drinks per day Substance Use Type does not use Meds Home Medications and Allergies Home Medications Medication Instructions Recorded Confirmed Type carvedilol 25 mg tablet 25 mg BID 09/23/22 09/23/22 History Allergies Allergy/AdvReac Type Severity Reaction Status Date / Time No Known Drug Allergies Allergy Verified 09/24/22 02:12 Review of Systems Review of Systems ROS: Yes All systems reviewed with the patient and are negative except as otherwise documented Exam Vital Signs (past 8 hours): - 09/23/22 18:00 09/23/22 18:30 09/23/22 19:00 Temperature Pulse Rate 76 76 75 Respiratory Rate 21 27 H Blood Pressure Pulse Oximetry 97 95 95 Oxygen Delivery Method Oxygen Flow Rate 09/23/22 19:30 09/23/22 19:31 09/23/22 19:31 Temperature Pulse Rate 83 76 Respiratory Rate Blood Pressure 129/69 Pulse Oximetry 96 96 Oxygen Delivery Method Oxygen Flow Rate 09/23/22 20:00 09/23/22 20:01 09/23/22 20:01 Temperature Pulse Rate 79 79 Respiratory Rate 25 H 23 Blood Pressure 191/110 H Pulse Oximetry 95 96 Oxygen Delivery Method Oxygen Flow Rate 09/23/22 20:04 09/23/22 20:04 09/23/22 20:30 Temperature Pulse Rate 77 84 Respiratory Rate 20 20 Blood Pressure 159/69 H Pulse Oximetry 96 95 Oxygen Delivery Method Oxygen Flow Rate 09/23/22 20:31 09/23/22 20:31 09/23/22 21:00 Temperature Pulse Rate 84 82 Respiratory Rate 24 21 Blood Pressure 127/89 Pulse Oximetry 95 97 Oxygen Delivery Method Oxygen Flow Rate 09/23/22 21:01 09/23/22 21:05 09/23/22 21:05 Temperature Pulse Rate 82 81 Respiratory Rate 22 18 Blood Pressure 151/99 H Pulse Oximetry 96 95 Oxygen Delivery Method Oxygen Flow Rate 09/23/22 21:30 09/23/22 21:30 09/23/22 21:56 Temperature Pulse Rate 83 78 Respiratory Rate 24 22 Blood Pressure 150/102 H Pulse Oximetry 96 95 Oxygen Delivery Method Oxygen Flow Rate 09/23/22 21:56 09/24/22 01:00 09/24/22 00:25 Temperature 97.0 F L Pulse Rate 73 Respiratory Rate 17 Blood Pressure 139/62 168/71 H Pulse Oximetry 96 96 Oxygen Delivery Method Room Air Oxygen Flow Rate 0 0 09/23/22 22:00 09/23/22 22:00 09/23/22 22:30 Temperature Pulse Rate 85 82 Respiratory Rate 24 Blood Pressure 132/73 Pulse Oximetry 95 96 Oxygen Delivery Method Oxygen Flow Rate 09/23/22 22:31 09/23/22 22:31 09/23/22 23:00 Temperature Pulse Rate 81 Respiratory Rate Blood Pressure 136/69 133/66 Pulse Oximetry 96 Oxygen Delivery Method Oxygen Flow Rate 09/23/22 23:00 09/23/22 23:30 09/23/22 23:30 Temperature Pulse Rate 80 75 Respiratory Rate 22 22 Blood Pressure 122/65 Pulse Oximetry 96 95 Oxygen Delivery Method Oxygen Flow Rate 09/24/22 00:00 09/24/22 00:00 Temperature Pulse Rate 75 Respiratory Rate 23 Blood Pressure 113/69 Pulse Oximetry 95 Oxygen Delivery Method Oxygen Flow Rate Oxygen Delivery Method Room Air Oxygen Flow Rate 0 Narrative Exam Narrative: Gen: Alert, oriented, well-developed 72 y.o. male, NAD HEENT: normocephalic, atraumatic, conjunctiva clear, sclera non-icteric, oral mucosa pink and moist Neck: supple, full ROM, no JVD, trachea is midline Resp: Lungs CTA, non-labored breathing CV: RRR, no murmur or rubs Abd: soft, non-tender, normoactive BTs : bladder irrigation in place, draining dark red urine Skin: no lesions or rashes, dry and intact Neuro: Alert and oriented X 4 w/no focal deficits. Speech clear and coherent. Extremities: moves all 4 extremities, is ambulatory, negative Tanvi?s sign Psyche: normal mood and affect. Objective Labs 09/23/22 18:35 09/23/22 18:35 Labs: Laboratory Results - last 24 hr 09/23/22 09/23/22 09/23/22 18:02 18:35 18:35 WBC 16.0 H RBC 4.69 Hgb 14.6 Hct 42.8 MCV 91.2 MCH 31.1 MCHC 34.1 RDW 14.2 Plt Count 266 Neut % (Auto) 87.6 H Lymph % (Auto) 6.3 L [place] % (Auto) 4.7 Eos % (Auto) 0.9 L Baso % (Auto) 0.5 Neut # (Auto) 31026 H Lymph # (Auto) 1000 L [place] # (Auto) 800 Eos # (Auto) 100 Baso # (Auto) 100 Sodium 134 L Potassium 4.1 Chloride 98 Carbon Dioxide 25 BUN 26 H Creatinine 0.94 Estimated GFR > 60 BUN/Creatinine Ratio 27.7 H Glucose 152 H Hemoglobin A1c Calcium 8.9 Total Bilirubin 0.5 AST 31 ALT 32 Alkaline Phosphatase 86 Total Protein 7.6 Albumin 4.2 Globulin 3.4 Albumin/Globulin Ratio 1.2 SARS-CoV-2 (PCR) Negative Influenza A (RT-PCR) Flu a negative Influenza B (RT-PCR) Flu b negative RSV (PCR) Negative 09/23/22 18:35 WBC RBC Hgb Hct MCV MCH MCHC RDW Plt Count Neut % (Auto) Lymph % (Auto) [place] % (Auto) Eos % (Auto) Baso % (Auto) Neut # (Auto) Lymph # (Auto) [place] # (Auto) Eos # (Auto) Baso # (Auto) Sodium Potassium Chloride Carbon Dioxide BUN Creatinine Estimated GFR BUN/Creatinine Ratio Glucose Hemoglobin A1c 7.0 H Calcium Total Bilirubin AST ALT Alkaline Phosphatase Total Protein Albumin Globulin Albumin/Globulin Ratio SARS-CoV-2 (PCR) Influenza A (RT-PCR) Influenza B (RT-PCR) RSV (PCR) Assessment & Plan Assessment & Plan narrative: Barrett Jerome will be admitted for further evaluation and management of a post- TURP acute urinary retention. Acute urinary retention post TURP, present on admission - He was set up with continous bladder irrigation - ED spoke to [facility] Urology and their hospitalist, declined transfer - ED consulted w/Dr. Stubbs who recommend transfer back to the facility where he had the surgery, and appears transfer request was declined again, and Dr. Stubbs agreed to consult on management of this patient. CAD, chronic -due to bleeding we will hold Plavix and aspirin -continue home dose of carvedilol 25 mg p.o. b.i.d. -continue home dose of atorvastatin 40 mg p.o. daily Diabetes type 2 with marginal control -A1c is 7.0 -she started on Lantus 5 units in the morning and the evening -regular insulin medium correctional scale -oral anti diabetics are being held Asthma, chronic -continue montelukast 10 mg p.o. at bedtime GERD, chronic -continue Protonix 40 mg at at 7:00 a.m. Other independent historians: , Brinda Discussion of results, plan of care with independent HCP/other: ED provider Reviewed outside records: None available VTE Prophylaxis: Wells risk score X Bilateral SCDs Pharmacological VTE prophylaxis contraindicated in the setting of bladder hemorrhage Patient is admitted to the inpatient service due to the severity of disease, risks of further disease progression and this stay is expected to exceed 2 midnights. FEN: IV fluids: saline lock, diet: carb controlled diet, labs: CBC, C/BMP, liver enzymes, Mag, PT/INR Consultants Dr. Stubbs, Urology, care and involvement in the patient?s care is appreciated. Social determinants of health: none Dispo: uknown at this time Code status: Full Code as discussed with the patient who identifies his Brinda as his surrogate and POA. [X] I have utilized all available immediate resources to obtain, update, or review of the patient's current medications VTE Deep Vein Thrombosis/Pulmonary Embolism Present on Admission: No MIPS - Admit I confirm the patient?s Advance Care Plan is present, Code status is documented, Surrogate decision maker is in patient?s record: Yes MIPS - DC The patient has current or prior documentation of left ventricular ejection fraction (LVEF) less than 40%, or moderate or severely depressed left ventricular systolic function.: No COVID-19 COVID-19 status: Negative Result date/Date tested (Pos, Neg/Pending): 09/24/22
[2022-09-24] MEDS: PANTOPRAZOLE DR 40 MG TABLET PO (06:13)
[2022-09-24] MEDS: INSULIN GLARGINE 100 UNIT/ML 3ML PEN SUBCUT ×2 (09:02→21:09)
[2022-09-24] MEDS: INSULIN LISPRO 100 UNIT/ML 3ML VIAL SUBCUT (09:02)
[2022-09-24] MEDS: LOSARTAN 50 MG TABLET 100 MG PO (09:04)
[2022-09-24] MEDS: carvediloL 12.5 MG TABLET 25 MG PO ×2 (09:04→21:04)
[2022-09-24] MEDS: LIDOCAINE 2% (GLYDO) 6 ML GEL TOP (13:00)
--- NOTE | 2022-09-24 15:35 | PM.CN ---
History of Present Illness Consult details Date Patient Seen: 09/24/22 Time Patient Seen: 12:10 Chief complaint: Urinary Retention Reason for consult: Clot retention Narrative: Barrett is a 72-year-old male that presented to the [facility] ED last evening with complaint of inability to void. He states that he underwent Transurethral resection of prostate by Dr. Bauman on 08/29/2022. Chronic anticoagulation with clopidogrel, he reports, was interrupted in the short term perioperative. On questioning, the patient has no specific recollection of indication for use of anticoagulation. He reports a significant cardiac history of having undergone CABG x5 and also placement of 3 percutaneous coronary stents. He reports that he sustained a myocardial infarction in either 2017 or 2018 in [place]. He does not recall the last time he saw a information systems operator. The patient reports having gross hematuria and the since restarting clopidogrel and was told that this may continue for 4-6 weeks postoperatively. Earlier in the day, 09/23/2022 he abruptly could no longer void. He presented to [facility] ED were evaluation and history were indicative of urinary retention. A three-way catheter was inserted and per the patient's report and that of the ED provider I spoke with significant clot was recovered. Thereafter the urine remained at least a ?light punch colored on continuous bladder irrigation. Attempts by both Dr. Neville and Dr. Hoover to appropriately transfer the patient to [facility] where the surgical intervention was conducted and also where there are available cardiologists, were denied by both the hospitalist provider and the on-call urologist. Meds Home Medications and Allergies Home Medications Medication Instructions Recorded Confirmed Type carvedilol 25 mg tablet 25 mg BID 09/23/22 09/23/22 History B Complex-Vitamin B12 2,500 mg PO DAILY 09/24/22 09/24/22 History aspirin 81 mg tablet 81 mg PO DAILY 09/24/22 09/24/22 History atorvastatin 40 mg tablet 40 mg PO BEDTIME 09/24/22 09/24/22 History cholecalciferol (vitamin D3) 25 1,000 unit PO DAILY 09/24/22 09/24/22 History mcg (1,000 unit) tablet citalopram 20 mg tablet 20 mg PO DAILY 09/24/22 09/24/22 History clopidogrel 75 mg tablet 75 mg PO DAILY 09/24/22 09/24/22 History hydrochlorothiazide 25 mg tablet 25 mg PO DAILY 09/24/22 09/24/22 History metformin 1,000 mg tablet 1,000 mg PO BID 09/24/22 09/24/22 History montelukast 10 mg tablet 10 mg PO BEDTIME 09/24/22 09/24/22 History pantoprazole 40 mg tablet,delayed 40 mg PO BEDTIME 09/24/22 09/24/22 History release primidone 50 mg tablet 50 mg PO BEDTIME 09/24/22 09/24/22 History tamsulosin 0.4 mg capsule 0.4 mg PO BEDTIME 09/24/22 09/24/22 History trazodone 100 mg tablet 100 mg PO BEDTIME 09/24/22 09/24/22 History Allergies Allergy/AdvReac Type Severity Reaction Status Date / Time No Known Drug Allergies Allergy Verified 09/24/22 02:12 Exam Vital Signs (past 8 hours): - 09/24/22 09:04 09/24/22 09:04 09/24/22 15:00 Temperature 98.1 F Pulse Rate 78 77 Respiratory Rate 18 Blood Pressure 149/72 H 143/69 H Pulse Oximetry 98 Oxygen Flow Rate 0 Oxygen Delivery Method Room Air Oxygen Flow Rate 0 Narrative Exam Narrative: Well-developed, moderately over nourished male sitting upright in bed eating lunch. Head/neck-sclera clear pupils are round and equal bilaterally. No visible evidence of JVD or adenopathy. Chest-equal and unlabored expansion bilaterally. Heart-normal sinus rhythm. Abdomen-bowel tones are normal active. Contours round, firm and protuberant. External genitalia normal appearing uncircumcised male phallus with indwelling Walter catheter and some dried blood in the vicinity of the meatus and catheter shaft. Outflow is valdivia red. PROCEDURE: The existing indwelling Walter catheter was disconnected from drainage bag and attempts to hand irrigate the catheter were unsuccessful indicating clot obstruction. The balloon was deflated in the catheter was removed and discarded. The lower abdomen, genitalia, and groin were then prepped and draped in sterile fashion the urethral chills was filled with 10 cc of lidocaine jelly. An attempt to pass a 24 Trin[place] three-way, Sarmad hematuria catheter was unsuccessful due to limited penile urethral caliber. Next, a [address] Walter catheter (apparently hematuria catheter years are on back order or were not restart in cart) was successfully passed the lower urinary tract and the balloon was initially filled to 10 cc. Painstaking hand irrigation with a catheter tip 60 cc syringe was then undertaken with resultant removal of proximally 300 cc of maroon clot. Once all significant clot was removed the balloon was again inflated with 10 more cc, for a total of 20 cc. Hand irrigation continued to demonstrate a light valdivia coloration. The 3 way catheter was then attached to continuous normal saline inflow and gravity drainage outflow. The catheter was secured to the inner thigh with a StatLock. Objective Labs 09/23/22 18:35 09/23/22 18:35 Labs: Laboratory Results - last 24 hr 09/23/22 09/23/22 09/23/22 18:02 18:35 18:35 WBC 16.0 H RBC 4.69 Hgb 14.6 Hct 42.8 MCV 91.2 MCH 31.1 MCHC 34.1 RDW 14.2 Plt Count 266 Neut % (Auto) 87.6 H Lymph % (Auto) 6.3 L [place] % (Auto) 4.7 Eos % (Auto) 0.9 L Baso % (Auto) 0.5 Neut # (Auto) 94565 H Lymph # (Auto) 1000 L [place] # (Auto) 800 Eos # (Auto) 100 Baso # (Auto) 100 Sodium 134 L Potassium 4.1 Chloride 98 Carbon Dioxide 25 BUN 26 H Creatinine 0.94 Estimated GFR > 60 BUN/Creatinine Ratio 27.7 H Glucose 152 H Hemoglobin A1c Calcium 8.9 Total Bilirubin 0.5 AST 31 ALT 32 Alkaline Phosphatase 86 Total Protein 7.6 Albumin 4.2 Globulin 3.4 Albumin/Globulin Ratio 1.2 SARS-CoV-2 (PCR) Negative Influenza A (RT-PCR) Flu a negative Influenza B (RT-PCR) Flu b negative RSV (PCR) Negative 09/23/22 18:35 WBC RBC Hgb Hct MCV MCH MCHC RDW Plt Count Neut % (Auto) Lymph % (Auto) [place] % (Auto) Eos % (Auto) Baso % (Auto) Neut # (Auto) Lymph # (Auto) [place] # (Auto) Eos # (Auto) Baso # (Auto) Sodium Potassium Chloride Carbon Dioxide BUN Creatinine Estimated GFR BUN/Creatinine Ratio Glucose Hemoglobin A1c 7.0 H Calcium Total Bilirubin AST ALT Alkaline Phosphatase Total Protein Albumin Globulin Albumin/Globulin Ratio SARS-CoV-2 (PCR) Influenza A (RT-PCR) Influenza B (RT-PCR) RSV (PCR) [facility] Medical History Asthma Cholelithiasis Diabetes type 2, controlled Essential hypertension Myocardial infarction Surgical History S/P CABG x 5 Family History Mother Hyperlipidemia Father Myocardial infarction Heart disease Brother Heart disease Social History household members: spouse Tobacco & Substance Use Smoking Status: Never smoker Assessment & Plan Assessment & Plan narrative: Assessment: 1. Clot retention. 2. Chronic clopidogrel anticoagulation. 3. Status post TURP by outside provider 08/29/2022. Plan: 1. Begin alum continuous bladder irrigation. 2. Remain off anticoagulant therapy for now. Time Spent With Patient Critical Care time: I spent a total of [] minutes of critical care time on this patient's care today; this time is exclusive of procedural time.
--- NOTE | 2022-09-24 17:12 | PM.PN.1 ---
Subjective Subjective Interval history: Barrett Jerome is a 72-year-old male with a history of coronary artery disease on aspirin and Plavix, a quintuple bypass in 2006 and 3 MIs and diabetes type 2, underwent TURP on August 28 at [facility]. He presented today with acute urinary retention.? For a few days post surgery, he had intermittent fevers and reports that he has had hematuria off and on since the surgery, sometime with clots, mostly pink to red urine. Patient has been assessed by Urology and will start on alum treatment. Clopidogrel is being held. Walter is in place for irrigation and still having bloody urine. Exam Vital Signs (past 8 hours): - 09/24/22 15:00 Temperature 98.1 F Pulse Rate 77 Respiratory Rate 18 Blood Pressure 143/69 H Pulse Oximetry 98 Oxygen Flow Rate 0 Oxygen Delivery Method Room Air Oxygen Flow Rate 0 Narrative Exam Narrative: Gen: Alert, oriented, well-developed male, NAD HEENT: normocephalic, atraumatic, conjunctiva clear, sclera non-icteric, oral mucosa pink and moist Neck: supple, full ROM, no JVD, trachea is midline Resp: Lungs CTA, non-labored breathing CV: RRR, no murmur or rubs Abd: soft, non-tender, normoactive BTs : bladder irrigation in place, draining dark red urine Skin: no lesions or rashes, dry and intact Neuro: Alert and oriented X 4 w/no focal deficits. Speech clear and coherent. Extremities: moves all 4 extremities, is ambulatory, negative Tanvi?s sign Psyche: normal mood and affect. Objective Labs 09/23/22 18:35 09/23/22 18:35 Labs: Laboratory Results - last 24 hr 09/23/22 09/23/22 09/23/22 18:02 18:35 18:35 WBC 16.0 H RBC 4.69 Hgb 14.6 Hct 42.8 MCV 91.2 MCH 31.1 MCHC 34.1 RDW 14.2 Plt Count 266 Neut % (Auto) 87.6 H Lymph % (Auto) 6.3 L [place] % (Auto) 4.7 Eos % (Auto) 0.9 L Baso % (Auto) 0.5 Neut # (Auto) 53726 H Lymph # (Auto) 1000 L [place] # (Auto) 800 Eos # (Auto) 100 Baso # (Auto) 100 Sodium 134 L Potassium 4.1 Chloride 98 Carbon Dioxide 25 BUN 26 H Creatinine 0.94 Estimated GFR > 60 BUN/Creatinine Ratio 27.7 H Glucose 152 H Hemoglobin A1c Calcium 8.9 Total Bilirubin 0.5 AST 31 ALT 32 Alkaline Phosphatase 86 Total Protein 7.6 Albumin 4.2 Globulin 3.4 Albumin/Globulin Ratio 1.2 SARS-CoV-2 (PCR) Negative Influenza A (RT-PCR) Flu a negative Influenza B (RT-PCR) Flu b negative RSV (PCR) Negative 09/23/22 18:35 WBC RBC Hgb Hct MCV MCH MCHC RDW Plt Count Neut % (Auto) Lymph % (Auto) [place] % (Auto) Eos % (Auto) Baso % (Auto) Neut # (Auto) Lymph # (Auto) [place] # (Auto) Eos # (Auto) Baso # (Auto) Sodium Potassium Chloride Carbon Dioxide BUN Creatinine Estimated GFR BUN/Creatinine Ratio Glucose Hemoglobin A1c 7.0 H Calcium Total Bilirubin AST ALT Alkaline Phosphatase Total Protein Albumin Globulin Albumin/Globulin Ratio SARS-CoV-2 (PCR) Influenza A (RT-PCR) Influenza B (RT-PCR) RSV (PCR) [facility] Medical History Asthma Cholelithiasis Diabetes type 2, controlled Essential hypertension Myocardial infarction Surgical History S/P CABG x 5 Family History Mother Hyperlipidemia Father Myocardial infarction Heart disease Brother Heart disease Social History household members: spouse Smoking Status: Never smoker Assessment & Plan Assessment & Plan narrative: Acute urinary retention post TURP, present on admission - He was set up with continous bladder irrigation - ED spoke to [facility] and their hospitalist, declined transfer - ED consulted w/Dr. Stubbs who recommend transfer back to the facility where he had the surgery, and appears transfer request was declined again, and Dr. Stubbs agreed to consult on management of this patient. Hematuria -per urology consult, will initiate alum treatment CAD, chronic -due to bleeding we will hold Plavix and aspirin -these will be discontinued in light of the hematuria while in the hospital -continue home dose of carvedilol 25 mg p.o. b.i.d. -continue home dose of atorvastatin 40 mg p.o. daily Diabetes type 2 with marginal control -A1c is 7.0 -he started on Lantus 5 units in the morning and the evening -regular insulin medium correctional scale -oral anti diabetics are being held Asthma, chronic -continue montelukast 10 mg p.o. at bedtime GERD, chronic -continue Protonix 40 mg daily Follow clinically and labs. VTE Prophylaxis: Wells risk score X Bilateral SCDs Pharmacological VTE prophylaxis contraindicated in the setting of bladder hemorrhage Code status: Full Code as discussed by nurse practitioner on admission with the patient who identifies his Brinda as his surrogate and POA. Time Spent With Patient Critical Care time: I spent a total of [] minutes of critical care time on this patient's care today; this time is exclusive of procedural time.
[2022-09-24] MEDS: WATER FOR IRRIGATION STERILE IRR (17:30)
[2022-09-24] MEDS: [UNRECOGNIZED DRUG - OTHER] IRR (17:30)
[2022-09-24] MEDS: TAMSULOSIN 0.4 MG CAPSULE PO (21:05)
[2022-09-24] MEDS: MONTELUKAST 10 MG TABLET PO (21:05)
[2022-09-24] MEDS: ATORVASTATIN 20 MG TABLET 40 MG PO (21:05)
[2022-09-24] MEDS: TRAZODONE 100 MG TABLET PO (23:40)
[2022-09-25] VITALS (8 sets, daily range): BP systolic 114–162; BP diastolic 51–75; PULSE 68–81; RESP 18–20; TEMP 36–36.9; O2SAT 94–99
[2022-09-25 06:47] LABS: Add Manual Diff / Slide Review NO; Basophils Absolute Auto 100 /uL (0-100); Basophils Percent Auto 0.7 % (0-2); Eosinophils Absolute Auto 400 /uL (0-450); Hematocrit 39.5 % (41-53); Hemoglobin 13.3 g/dL (13.5-17.5); Lymphocytes Absolute Auto 1800 /uL (1100-4500); Lymphocytes Percent Auto 14.1 % (25-40); Mean Corpuscular HGB Conc 33.8 % (30-36); Mean Corpuscular Hemoglobin 30.9 PG (26-34); Mean Corpuscular Volume 91.7 fL (80-100); Monocytes Absolute Auto 1400 /uL (0-900); Monocytes Percent Auto 10.9 % (3-14); Neutrophils Absolute Auto 9300 /uL (1500-7000); Neutrophils Percent Auto 71.3 % (50-75); Platelet Count 244 X10^3/uL (150-400); Red Cell Distribution Width 14.1 % (11.6-14.8)
[2022-09-25 06:56] LABS: Alanine Aminotransferase 25 IU/L (<50); Albumin 3.9 g/dL (3.5-5.0); Albumin Globulin Ratio 1.1 (1.0-2.8); Alkaline Phosphatase 73 U/L (38-126); Aspartate Aminotransferase 30 IU/L (17-59); BUN Creatinine Ratio 23.5 (6-22); Bilirubin Total 0.6 mg/dL (0.2-1.3); Blood Urea Nitrogen 20 mg/dL (9-20); Calcium 8.4 mg/dL (8.4-10.2); Carbon Dioxide 28 mmol/L (22-32); Chloride 98 mmol/L (98-107); Estimated Glomerular Filt Rate > 60 mL/min (>60); Globulin 3.4 g/dL (1.7-4.1); Glucose 148 mg/dL (80-110); HEMOLYSIS < 15 (0-50); Magnesium 1.9 mg/dL (1.6-2.3); Potassium 3.9 mmol/L (3.4-5.1); Sodium 135 mmol/L (137-145); Total Protein 7.3 g/dL (6.3-8.2)
[2022-09-25] MEDS: PANTOPRAZOLE DR 40 MG TABLET PO (06:56)
--- NOTE | 2022-09-25 07:37 | P.PN_ITS ---
Subjective Subjective Date Patient Seen: 09/25/22 Time Patient Seen: 07:00 Interval history: Barrett is a 72-year-old male admitted in the late evening 09/23/2022 for further evaluation and management of gross hematuria and clot retention. He is status post TURP by another provider at an outside facility on 08/29/2022. He is on chronic clopidogrel anticoagulation therapy which has been discontinued upon admission. Alum irrigation was begun yesterday and in the interval he is had very good clinical progress per the patient, his , and nursing staff at that cared for him through the night. At approximately midnight 100 cc of clot was irrigated. Since then the outflow has had a typical brown discoloration with some brown sediment seen in the tubing and bag, but overall markedly improved per reports. Exam Vital Signs (past 8 hours): - 09/24/22 23:54 09/25/22 01:00 09/25/22 05:00 Temperature 97.5 F L 97.5 F L Pulse Rate 74 76 Respiratory Rate 17 18 Blood Pressure 131/65 146/70 H Pulse Oximetry 94 94 96 Oxygen Delivery Method Room Air Oxygen Flow Rate 0 0 0 Oxygen Delivery Method Room Air Oxygen Flow Rate 0 Narrative Exam Narrative: He is resting comfortably in bed and in no distress. Abdomen-round and obese. Nontender. Genitalia-indwelling three-way Walter catheter. Outflow has light brown discoloration in the small amount of ?sand? lying dependently in the tubing. Objective Labs 09/25/22 06:22 09/25/22 06:22 Labs: Laboratory Results - last 24 hr 09/25/22 09/25/22 06:22 06:22 WBC 13.0 H RBC 4.30 L Hgb 13.3 L Hct 39.5 L MCV 91.7 MCH 30.9 MCHC 33.8 RDW 14.1 Plt Count 244 Neut % (Auto) 71.3 Lymph % (Auto) 14.1 L [place] % (Auto) 10.9 Eos % (Auto) 3.0 Baso % (Auto) 0.7 Neut # (Auto) 9300 H Lymph # (Auto) 1800 [place] # (Auto) 1400 H Eos # (Auto) 400 Baso # (Auto) 100 Sodium 135 L Potassium 3.9 Chloride 98 Carbon Dioxide 28 BUN 20 Creatinine 0.85 Estimated GFR > 60 BUN/Creatinine Ratio 23.5 H Glucose 148 H Calcium 8.4 Magnesium 1.9 Total Bilirubin 0.6 AST 30 ALT 25 Alkaline Phosphatase 73 Total Protein 7.3 Albumin 3.9 Globulin 3.4 Albumin/Globulin Ratio 1.1 PFSH Medical History Asthma Cholelithiasis Diabetes type 2, controlled Essential hypertension Myocardial infarction Surgical History S/P CABG x 5 Family History Mother Hyperlipidemia Father Myocardial infarction Heart disease Brother Heart disease Social History household members: spouse Smoking Status: Never smoker Assessment & Plan Assessment & Plan narrative: Assessment: 1. Postoperative clot retention-improved on alum irrigation. Plan: 1. Continue alum irrigation. 2. Okay to increase ambulation and continue encouragement to consume volumes of free water. 3. Discussed with patient and his today and encouraged them to contact [facility] Urology to schedule post discharge follow-up appointment. Time Spent With Patient Critical Care time: I spent a total of [] minutes of critical care time on this patient's care today; this time is exclusive of procedural time.
[2022-09-25] MEDS: ACETAMINOPHEN 325 MG TABLET 650 MG PO (08:37)
[2022-09-25] MEDS: carvediloL 12.5 MG TABLET 25 MG PO ×2 (08:38→21:10)
[2022-09-25] MEDS: LOSARTAN 50 MG TABLET 100 MG PO (08:38)
[2022-09-25] MEDS: INSULIN GLARGINE 100 UNIT/ML 3ML PEN SUBCUT (08:39)
[2022-09-25] MEDS: INSULIN LISPRO 100 UNIT/ML 3ML VIAL SUBCUT ×3 (08:43→21:23)
--- NOTE | 2022-09-25 12:24 | PM.PN.1 ---
Subjective Subjective Interval history: Patient denies chest pain, shortness of breath. Intermittent abdominal pain continues today, possibly with clot that intermittently clear on its own. There is still a pinkish fiore tinge to urine this morning. Exam Vital Signs (past 8 hours): - 09/25/22 05:00 09/25/22 08:30 09/25/22 12:00 Temperature 97.5 F L 97.1 F L 96.8 F L Pulse Rate 76 81 68 Respiratory Rate 18 18 18 Blood Pressure 146/70 H 141/73 H 114/60 Pulse Oximetry 96 96 98 Oxygen Flow Rate 0 0 0 Oxygen Delivery Method Room Air Oxygen Flow Rate 0 Narrative Exam Narrative: He is resting comfortably in bed and in no distress. Abdomen-round and obese. Nontender. Genitalia-indwelling three-way Walter catheter. Outflow has light grayish pink appearing urine. Objective Labs 09/25/22 06:22 09/25/22 06:22 Labs: Laboratory Results - last 24 hr 09/25/22 09/25/22 06:22 06:22 WBC 13.0 H RBC 4.30 L Hgb 13.3 L Hct 39.5 L MCV 91.7 MCH 30.9 MCHC 33.8 RDW 14.1 Plt Count 244 Neut % (Auto) 71.3 Lymph % (Auto) 14.1 L [place] % (Auto) 10.9 Eos % (Auto) 3.0 Baso % (Auto) 0.7 Neut # (Auto) 9300 H Lymph # (Auto) 1800 [place] # (Auto) 1400 H Eos # (Auto) 400 Baso # (Auto) 100 Sodium 135 L Potassium 3.9 Chloride 98 Carbon Dioxide 28 BUN 20 Creatinine 0.85 Estimated GFR > 60 BUN/Creatinine Ratio 23.5 H Glucose 148 H Calcium 8.4 Magnesium 1.9 Total Bilirubin 0.6 AST 30 ALT 25 Alkaline Phosphatase 73 Total Protein 7.3 Albumin 3.9 Globulin 3.4 Albumin/Globulin Ratio 1.1 PFSH Medical History Asthma Cholelithiasis Diabetes type 2, controlled Essential hypertension Myocardial infarction Surgical History S/P CABG x 5 Family History Mother Hyperlipidemia Father Myocardial infarction Heart disease Brother Heart disease Social History household members: spouse Smoking Status: Never smoker Assessment & Plan Assessment & Plan narrative: Acute urinary retention with hematuria post TURP, present on admission - He was set up with continous bladder irrigation with alum infusion - discussed with urology today, recommend continuing another 24 hours of alum with reassessment. Hematuria -per urology consult, will initiate alum treatment -continue to follow h/h CAD, chronic -due to bleeding we will hold Plavix and aspirin -these will be discontinued in light of the hematuria while in the hospital -continue home dose of carvedilol 25 mg p.o. b.i.d. -continue home dose of atorvastatin 40 mg p.o. daily Diabetes type 2 with marginal control -A1c is 7.0 -he started on Lantus 5 units in the morning and the evening -regular insulin medium correctional scale -oral anti diabetics are being held Asthma, chronic -continue montelukast 10 mg p.o. at bedtime GERD, chronic -continue Protonix 40 mg daily Follow clinically and labs. VTE Prophylaxis: Wells risk score X Bilateral SCDs Pharmacological VTE prophylaxis contraindicated in the setting of bladder hemorrhage Code status: Full Dispo: discharge home when hematuria improves. Time Spent With Patient Critical Care time: I spent a total of [] minutes of critical care time on this patient's care today; this time is exclusive of procedural time.
[2022-09-25] MEDS: [UNRECOGNIZED DRUG - OTHER] IRR ×2 (15:34→23:15)
[2022-09-25] MEDS: WATER FOR IRRIGATION STERILE IRR ×2 (15:34→23:15)
[2022-09-25] MEDS: PHENAZOPYRIDINE 100 MG TABLET 200 MG PO ×2 (17:55→21:10)
[2022-09-25] MEDS: TAMSULOSIN 0.4 MG CAPSULE PO (18:45)
[2022-09-25] MEDS: TRAZODONE 100 MG TABLET PO (18:52)
[2022-09-25] MEDS: MONTELUKAST 10 MG TABLET PO (21:11)
[2022-09-25] MEDS: ATORVASTATIN 20 MG TABLET 40 MG PO (21:11)
[2022-09-26 01:00] VITALS: O2SAT 96
[2022-09-26 03:00] VITALS: BP 162/68; PULSE 71; RESP 14; TEMP 36.4; O2SAT 97
[2022-09-26 06:39] LABS: Add Manual Diff / Slide Review NO; Basophils Absolute Auto 100 /uL (0-100); Basophils Percent Auto 0.7 % (0-2); Eosinophils Absolute Auto 600 /uL (0-450); Eosinophils Percent Auto 5.1 % (2-4); Hematocrit 37.7 % (41-53); Hemoglobin 12.7 g/dL (13.5-17.5); Lymphocytes Absolute Auto 1500 /uL (1100-4500); Lymphocytes Percent Auto 13.9 % (25-40); Mean Corpuscular HGB Conc 33.7 % (30-36); Mean Corpuscular Hemoglobin 31.2 PG (26-34); Mean Corpuscular Volume 92.4 fL (80-100); Monocytes Absolute Auto 1100 /uL (0-900); Neutrophils Absolute Auto 7800 /uL (1500-7000); Neutrophils Percent Auto 70.3 % (50-75); Platelet Count 234 X10^3/uL (150-400); Red Blood Cell Count 4.07 X10^6/uL (4.5-5.9); Red Cell Distribution Width 14.1 % (11.6-14.8); White Blood Cell Count 11.1 X10^3/uL (4.5-11.0)
[2022-09-26 06:50] LABS: Alanine Aminotransferase 22 IU/L (<50); Albumin 3.8 g/dL (3.5-5.0); Albumin Globulin Ratio 1.2 (1.0-2.8); Alkaline Phosphatase 69 U/L (38-126); Aspartate Aminotransferase 26 IU/L (17-59); BUN Creatinine Ratio 19.3 (6-22); Bilirubin Total 0.6 mg/dL (0.2-1.3); Blood Urea Nitrogen 17 mg/dL (9-20); Calcium 8.4 mg/dL (8.4-10.2); Carbon Dioxide 31 mmol/L (22-32); Chloride 99 mmol/L (98-107); Estimated Glomerular Filt Rate > 60 mL/min (>60); Globulin 3.3 g/dL (1.7-4.1); Glucose 162 mg/dL (80-110); HEMOLYSIS < 15 (0-50); Sodium 136 mmol/L (137-145); Total Protein 7.1 g/dL (6.3-8.2)
[2022-09-26 06:56] LABS: Potassium 3.8 mmol/L (3.4-5.1)
[2022-09-26 07:00] VITALS: BP 115/55; PULSE 97; RESP 17; TEMP 36.4; O2SAT 96
--- NOTE | 2022-09-26 07:07 | P.PN_ITS ---
Subjective Subjective Date Patient Seen: 09/26/22 Time Patient Seen: 06:30 Interval history: The patient is a 72-year-old male admitted through [facility] ED on 09/23/2022, for management of clot retention. He has history of having undergone TURP on 08/29/2022 by outside urologist at outside facility. He and his , Brinda report an uneventful night. He rested well and there were no issues with catheter function. He is tolerating a general diet bowel function is normal. Exam Vital Signs (past 8 hours): - 09/26/22 01:00 09/26/22 03:00 Temperature 97.6 F Pulse Rate 71 Respiratory Rate 14 Blood Pressure 162/68 H Pulse Oximetry 96 97 Oxygen Delivery Method Room Air Oxygen Flow Rate 0 Oxygen Delivery Method Room Air Oxygen Flow Rate 0 Narrative Exam Narrative: He is lying comfortably in bed and in no distress. Abdomen is round and protuberant. No tenderness. Genitalia-indwelling 3 way Walter catheter with straw colored outflow. Objective Labs 09/26/22 06:25 09/26/22 06:25 Labs: Laboratory Results - last 24 hr 09/26/22 09/26/22 06:25 06:25 WBC 11.1 H RBC 4.07 L Hgb 12.7 L Hct 37.7 L MCV 92.4 MCH 31.2 MCHC 33.7 RDW 14.1 Plt Count 234 Neut % (Auto) 70.3 Lymph % (Auto) 13.9 L [place] % (Auto) 10.0 Eos % (Auto) 5.1 H Baso % (Auto) 0.7 Neut # (Auto) 7800 H Lymph # (Auto) 1500 [place] # (Auto) 1100 H Eos # (Auto) 600 H Baso # (Auto) 100 Sodium 136 L Potassium 3.8 Chloride 99 Carbon Dioxide 31 BUN 17 Creatinine 0.88 Estimated GFR > 60 BUN/Creatinine Ratio 19.3 Glucose 162 H Calcium 8.4 Magnesium 2.0 Total Bilirubin 0.6 AST 26 ALT 22 Alkaline Phosphatase 69 Total Protein 7.1 Albumin 3.8 Globulin 3.3 Albumin/Globulin Ratio 1.2 [facility] Medical History Asthma Cholelithiasis Diabetes type 2, controlled Essential hypertension Myocardial infarction Surgical History S/P CABG x 5 Family History Mother Hyperlipidemia Father Myocardial infarction Heart disease Brother Heart disease Social History household members: spouse Smoking Status: Never smoker Assessment & Plan Assessment & Plan narrative: Assessment: 1. Gross hematuria and clot retention-resolved with alum irrigation. 2. Status post TURP 3. Chronic clopidogrel anticoagulation. Plan: 1. Okay to discharge from standpoint with indwelling Walter catheter. 2. The patient has follow-up visit with [facility] Urology scheduled. 3. The patient has appointment scheduled with a new insurance policy clerk to establish care. 4. May resume aspirin 81 mg daily. 5. Recommend withholding clopidogrel and discuss with operating urologist. Time Spent With Patient Critical Care time: I spent a total of [] minutes of critical care time on this patient's care today; this time is exclusive of procedural time.
[2022-09-26] MEDS: PHENAZOPYRIDINE 100 MG TABLET 200 MG PO (08:23)
[2022-09-26] MEDS: INSULIN GLARGINE 100 UNIT/ML 3ML PEN SUBCUT (08:24)
[2022-09-26 08:26] VITALS: BP 115/55; PULSE 71
[2022-09-26] MEDS: carvediloL 12.5 MG TABLET 25 MG PO (08:26)
[2022-09-26 08:27] VITALS: BP 115/55; PULSE 71
[2022-09-26] MEDS: LOSARTAN 50 MG TABLET 100 MG PO (08:27)
[2022-09-26] MEDS: INSULIN LISPRO 100 UNIT/ML 3ML VIAL SUBCUT (08:27)
--- NOTE | 2022-09-26 08:27 | P.DS_ITS ---
History of Present Illness History of Present Illness Date Patient Seen: 09/26/22 Time Patient Seen: 08:27 Chief complaint: Urinary Retention Narrative: Per admitting provider, Barrett Jerome is a 72-year-old male with a history of coronary artery disease on aspirin and Plavix, a quintuple bypass in 2006 and 3 MIs and diabetes type 2, underwent TURP on August 28 at [facility]. He presented today with acute urinary retention.? For a few days post surgery, he had intermittent fevers and reports that he has had hematuria off and on since the surgery, sometime with clots, mostly pink to red urine.? Today he stopped urinating around noon.? They were on their way to [facility], but he could not stand the pain, so they stopped at [place]. Denies h/a, chest pain, shortness of breath, nausea or vomiting, or bowel issues. He has had cold symptoms over the past week. States his diabetes is well controlled, last A1c prior to the TURP was 6.1. Landers catheter has since placed by nursing staff gross hematuria.? He had instant relief with Landers catheter. CT of the pelvis reported extensive blood product with dense clot in the urinary bladder and associated distention. Today he is afebrile, blood pressure 168/71 heart rate 73 respiratory rate 17 oxygen saturation of 96% on room air he weighs 90.7 kg with a BMI of 29.5. His white count is markedly elevated at 16.0, is a neutrophil count of 14,000 sodium 134 glucose 152 his A1c is 7 and COVID-19 PCR is negative. Discharge Providers Provider Date of admission: 09/24/22 00:16 Discharge Date: 09/26/22 Consults: 09/23/22 22:09 Consult to Urology Stat Comment: Consulting Provider: Anirudh Garsia Reason for consultation: Hematuria Has provider been notified: Yes 09/24/22 00:38 Consult to Physician Routine Comment: Consulting Provider: Anirudh Garsia Reason for consultation: acute urinary retention, TURP a month ago Has provider been notified: Yes Discharge provider: Larry Stevenson DO Summary Hospital Course Discharge Diagnosis: Acute urinary retention with hematuria post TURP, present on admission CAD, chronic Diabetes type 2 with marginal control Asthma, chronic GERD, chronic Hospital Course: Barrett Jerome is a 72-year-old male with a history of coronary artery disease on aspirin and Plavix, a quintuple bypass in 2006 and 3 MIs and diabetes type 2, underwent TURP on August 28 at [facility]. He presented with acute urinary retention and hematuria. After urology consultation he was started on a continuous bladder infusion with alum, with improvement after a couple of days and hematuria had improved, with urine remaining clear in his catheter after cessation of the alum continuous infusion. His aspirin and plavix were held. After discussion with urology, patient is to leave his landers in place, plavix was held but aspirin can continue at this time. He was discharged home with outpatient follow up with urology planned with his provider at [facility] whom pe rformed his TURP.? Time Spent with Patient Time spent: Greater than 30 minutes Exam Vital Signs (past 8 hours): - 09/26/22 01:00 09/26/22 03:00 Temperature 97.6 F Pulse Rate 71 Respiratory Rate 14 Blood Pressure 162/68 H Pulse Oximetry 96 97 Oxygen Delivery Method Room Air Oxygen Flow Rate 0 Oxygen Delivery Method Room Air Oxygen Flow Rate 0 Narrative Exam Narrative: He is lying comfortably in bed and in no distress. CV: RRR 3/6 systolic murmur no rubs or gallops Pulm: CTA B/l Abd: S NT ND Ext: no edema or joint effusions Genitalia-indwelling 3 way Landers catheter with clear yellow urine Objective Labs 09/26/22 06:25 09/26/22 06:25 Labs: Laboratory Results - last 24 hr 09/26/22 09/26/22 06:25 06:25 WBC 11.1 H RBC 4.07 L Hgb 12.7 L Hct 37.7 L MCV 92.4 MCH 31.2 MCHC 33.7 RDW 14.1 Plt Count 234 Neut % (Auto) 70.3 Lymph % (Auto) 13.9 L [place] % (Auto) 10.0 Eos % (Auto) 5.1 H Baso % (Auto) 0.7 Neut # (Auto) 7800 H Lymph # (Auto) 1500 [place] # (Auto) 1100 H Eos # (Auto) 600 H Baso # (Auto) 100 Sodium 136 L Potassium 3.8 Chloride 99 Carbon Dioxide 31 BUN 17 Creatinine 0.88 Estimated GFR > 60 BUN/Creatinine Ratio 19.3 Glucose 162 H Calcium 8.4 Magnesium 2.0 Total Bilirubin 0.6 AST 26 ALT 22 Alkaline Phosphatase 69 Total Protein 7.1 Albumin 3.8 Globulin 3.3 Albumin/Globulin Ratio 1.2 PFSH Medical History Asthma Cholelithiasis Diabetes type 2, controlled Essential hypertension Myocardial infarction Surgical History S/P CABG x 5 Family History Mother Hyperlipidemia Father Myocardial infarction Heart disease Brother Heart disease Social History household members: spouse Smoking Status: Never smoker Discharge Plan Discharge Plan Patient Disposition: Home Provider Discharge Comment: You were admitted to the hospital with hematuria, improved with bladder infusion. Recommended that you stop taking plavix, but aspirin can continue. Discharge orders & Medications Prescriptions: Continued carvedilol 25 mg tablet 25 mg BID Patient Comments: TAKE 1 TABLET BY MOUTH TWICE DAILY B Complex-Vitamin B12 2,500 mg PO DAILY atorvastatin 40 mg Tablet 40 mg PO BEDTIME primidone 50 mg Tablet 50 mg PO BEDTIME citalopram 20 mg Tablet 20 mg PO DAILY tamsulosin 0.4 mg Capsule 0.4 mg PO BEDTIME trazodone 100 mg Tablet 100 mg PO BEDTIME pantoprazole 40 mg Tablet,Delayed Release (Dr/Ec) 40 mg PO BEDTIME metformin 1,000 mg Tablet 1,000 mg PO BID montelukast 10 mg Tablet 10 mg PO BEDTIME aspirin 81 mg Tablet 81 mg PO DAILY hydrochlorothiazide 25 mg Tablet 25 mg PO DAILY cholecalciferol (vitamin D3) 25 mcg (1,000 unit) Tablet 1,000 unit PO DAILY Discontinued clopidogrel 75 mg Tablet 75 mg PO DAILY Diet/Activity/Treatments Diet: Diet as Tolerated Activity: As tolerated Visit Report/Discharge Packet Instructions: How to Care for Your Landers Catheter -- Male, DI for Transurethral Resection of the Prostate, DI for Hematuria, DI for Urinary Retention in Men Stand Alone Forms: Patient Portal/API, Stroke Signs & Symptoms
[2022-09-26 11:00] VITALS: BP 136/66; PULSE 69; RESP 16; TEMP 36.2; O2SAT 94
--- NOTE | 2022-09-26 12:16 | PC.NURSE ---
Pt and pt's spouse verbalized understanding on how to care for the landers. Pt's stated that the pt has a follow up with urology Saturday next week at [facility] for his TURP f/u. Pt is A&Ox4, all questions answered about how to care for the Landers, what medications to take continue and to d/c medications. All electronics sent home with the pt, all belongings sent home with the pt and his spouse. Pt wheeled out to the POV via W/C by RN. Pt was able to self transfer from W/C to POV. IV D/C'd and tip intact. Pt verbalized understanding of when to return and what s/sx to watch out for infection.
== END 2022-09-26 12:27 | disposition home or self-care (01) | DRG 700 ==
LOC: ED 09-24 00:04 → AC 09-24 00:17
PROVIDERS: Emergency Medicine; Internal Medicine; Admitting Provider Nurse Practitioner Family; Emergency Provider Emergency Medicine; Referring Provider Emergency Medicine; Visit Provider Nurse Practitioner Family
DX: N99.89 Other postprocedural complications and disorders of genitourinary system (principal); R33.9 Retention of urine, unspecified; R31.0 Gross hematuria; I25.10 Atherosclerotic heart disease of native coronary artery without angina pectoris; E11.9 Type 2 diabetes mellitus without complications; J45.909 Unspecified asthma, uncomplicated; K21.9 Gastro-esophageal reflux disease without esophagitis; I10 Essential (primary) hypertension; Z95.1 Presence of aortocoronary bypass graft; Z20.822 Contact with and (suspected) exposure to COVID-19; Z79.84 Long term (current) use of oral hypoglycemic drugs
CPT/HCPCS: 0241U; 36415; 72192; 80053; 82962; 83036; 83735; 85025; 99231; 99232; 99284; J1815

== ENCOUNTER → 2024-06-22 08:42 | Outpatient (CLI) | payer MEDICARE, OTHER, SELFPAY ==
[2022-09-24 00:40] VITALS: BMI 29.5
== END ==
PROVIDERS: PCP Nurse Practitioner; Referring Provider Internal Medicine Critical Care Medicine; Visit Provider Internal Medicine Critical Care Medicine
DX: J92.9 Pleural plaque without asbestos (principal); Z77.090 Contact with and (suspected) exposure to asbestos; R94.2 Abnormal results of pulmonary function studies
CPT/HCPCS: 94060; 94726; 94729